=== PATIENT | female | born 1990 | race Caucasian/White ===

== ENCOUNTER 2023-12-20 11:24 | Observation (INO) | payer OTHER, SELFPAY ==
[2023-12-20] VITALS (19 sets, daily range): BP systolic 129–145; BP diastolic 85–94; PULSE 79–99; RESP 14–20; TEMP 35.6–36.5; O2SAT 98–100; BMI 22.7; BMI 23.0
--- NOTE | 2023-12-20 11:31 | ED.NURSE ---
Dr. Norwood informed of patient's presenting symptoms and request for stroke code/stat head CT. She is entering orders.
--- NOTE | 2023-12-20 11:39 | CRLHL7_ITS ---
For Patients: As a result of the Century Cures Act, medical imaging exams and procedure reports are released immediately into your electronic medical record. You may view this report before your referring provider. If you have questions, please contact your health care provider. INDICATION: Vomiting. Left-sided weakness. COMPARISON: None. TECHNIQUE: Noncontrast CT head. FINDINGS: Metallic streak artifact on the right. Otherwise, normal brain parenchymal morphology. No acute intracranial hemorrhage, acute infarct, focal edema, mass effect, or fracture. No midline shift. No abnormal ventricular dilatation. Normal calvarium and skull base. Visualized paranasal sinuses and mastoid air cells are clear. Normal orbits bilaterally. IMPRESSION: 1. No acute intracranial abnormality. Findings texted directly to Dr. Cespedes at 12 p.m.. Please note that all CT scans at this facility use dose modulation, iterative reconstruction, and/or weight-based dosing when appropriate to reduce radiation dose to as low as reasonably achievable. Dictated by Richard Gibson MD @ 12/20/2023 12:01:38 PM (Electronically Signed)
[2023-12-20] MEDS: ONDANSETRON 2 MG/ML inj 4 MG IVP ×2 (11:42→16:09)
--- NOTE | 2023-12-20 11:42 | CRLHL7_ITS ---
For Patients: As a result of the Century Cures Act, medical imaging exams and procedure reports are released immediately into your electronic medical record. You may view this report before your referring provider. If you have questions, please contact your health care provider. CLINICAL HISTORY: Left upper extremity numbness; vomiting. TECHNIQUE: Standard helical CT image acquisition through the neck was performed after intravenous contrast bolus enhancement. 3D and MIP reconstructions were performed at a separate workstation and permanently archived. COMPARISON: None available. FINDINGS: The origins of the great vessels from the aortic arch are patent. The common carotid arteries are patent. No significant luminal stenoses of the proximal ICAs by NASCET criteria. The more distal cervical segments of the ICAs are patent. The origins of the vertebral arteries are patent. There is moderate narrowing of the distal cervical left vertebral artery in its suboccipital segment in which an underlying dissection is not excluded in the appropriate clinical setting. The cervical right vertebral artery is widely patent. IMPRESSION: 1. Moderate narrowing of the distal cervical left vertebral artery and suboccipital segment. This is favored to reflect a dissection in the appropriate clinical setting. 2. Otherwise, patent cervical arterial vasculature without hemodynamically significant luminal stenosis. Please note that all CT scans at this facility use dose modulation, iterative reconstruction, and/or weight-based dosing when appropriate to reduce radiation dose to as low as reasonably achievable. Dictated by Jon Mina MD @ 12/20/2023 3:34:02 PM (Electronically Signed)
--- NOTE | 2023-12-20 11:42 | CRLHL7_ITS ---
For Patients: As a result of the Century Cures Act, medical imaging exams and procedure reports are released immediately into your electronic medical record. You may view this report before your referring provider. If you have questions, please contact your health care provider. CLINICAL HISTORY: Left upper extremity numbness; vomiting. TECHNIQUE: Standard helical CT image acquisition through the head following the administration of intravenous contrast was performed. 3D and MIP reconstructions were performed at a separate workstation and permanently archived. COMPARISON: None available. FINDINGS: No intracranial proximal large vessel occlusion or flow-limiting luminal stenosis. No evidence of cerebral aneurysm. No findings to suggest an arterial-venous shunting lesion. The major dural venous sinuses and deep venous system are patent. IMPRESSION: No intracranial proximal large vessel occlusion, flow-limiting luminal stenosis, or cerebral aneurysm. Please note that all CT scans at this facility use dose modulation, iterative reconstruction, and/or weight-based dosing when appropriate to reduce radiation dose to as low as reasonably achievable. Dictated by Jon Mina MD @ 12/20/2023 3:36:41 PM (Electronically Signed)
[2023-12-20 11:48] LABS: Lactate* 2.5 mmol/L (0.5-1.9)
[2023-12-20 11:52] LABS: Basophils Absolute Auto 0.04 K/uL (0.00-0.30); Basophils Percent Auto 0.5 % (0.0-3.0); Eosinophils Absolute Auto 0.09 K/uL (0.00-0.50); Hemoglobin* 13.5 gm/dL (12.0-16.0); Immature Granulocytes Abs Auto 0.01 K/uL (0.00-0.30); Immature Granulocytes Pct Auto 0.1 %; Lymphocytes Absolute Auto 2.44 K/uL (0.90-2.90); Lymphocytes Percent Auto 27.5 % (20-44); Mean Corpuscular HGB Conc 33 gm/dL (32-36); Mean Corpuscular Hemoglobin 30 pg (26-34); Mean Corpuscular Volume 90 fL (80-100); Monocytes Percent Auto 8.4 % (0.0-11.0); Neutrophils Absolute Auto 5.54 K/uL (1.7-7.0); Neutrophils Percent Auto 62.5 % (42.0-72.0); Platelet Count* 390 K/uL (140-440); RDW Coefficient of Variation % 12.4 % (11.5-15.5); Red Blood Count 4.56 m/uL (4.00-5.20); White Blood Count* 8.86 K/uL (4.50-11.00)
[2023-12-20 11:55] LABS: Slide Review Reflex No
[2023-12-20 12:09] LABS: Chloride* 98 mmol/L (96-114); Sodium* 132 mmol/L (135-149)
[2023-12-20 12:10] LABS: Potassium* 3.4 mmol/L (3.6-5.1)
[2023-12-20 12:12] LABS: Alanine Aminotransferase* 16 U/L (4-35); Alkaline Phosphatase* 77 U/L (40-150); Anion Gap 14 mEq/L (7-15); Aspartate Amino Transferase* 26 U/L (12-35); Bilirubin Total* 0.5 mg/dL (0.1-1.5); Blood Urea Nitrogen* 11 mg/dL (5-24); Carbon Dioxide* 20 mmol/L (20-32); Creatinine* 0.7 mg/dL (0.5-1.5); Estimated Glomerular Filt Rate 118 ml/min; Glucose* 106 mg/dL (60-115); Total Protein* 8.1 g/dL (6.0-8.3)
[2023-12-20 12:13] LABS: Calcium* 9.4 mg/dL (8.4-10.6)
[2023-12-20] MEDS: 0.9 % SODIUM CHLORIDE 1000 ml 1,000 ML IV (12:24)
--- NOTE | 2023-12-20 12:56 | ED_ITS ---
HPI - Neuro Symptoms/Deficit General Chief Complaint: Neuro Symptoms/Altered Deficit Stated Complaint: Vomiting, poss stroke Time Seen by Provider: 12/20/23 11:29 History of Present Illness HPI Narrative: Patient is a 33-year-old woman who is here visiting from [place]. She has history of anxiety and histoplasmosis. She began abruptly vomiting this morning and the vomiting has become refractory. She has a dull headache which is diffuse. She also has tingling and weakness noted in left arm left leg as well as some drooling on the left side of her face. Of his I did have her immediately entry the stroke protocol and CTA as well as CT are both negative. She has a normal neurologic exam with Neurology. She has remained significantly nauseous and vomiting here. She states she is not . No blood in her vomitus. No diarrhea no abdominal pain no fevers no chills. Related Data Home Medications ?Medication ?Instructions ?Recorded ?Confirmed control pill 1 pill PO DAILY 12/20/23 12/20/23 bupropion HCl 100 mg tablet 50 mg PO DAILY 12/20/23 12/20/23 Allergies Allergy/AdvReac Type Severity Reaction Status Date / Time No Known Drug Allergies Allergy Verified 12/20/23 12:03 Review of Systems Status of ROS: Reports: 10 or more systems reviewed and unremarkable except as noted in History and below [facility] Medical History Histoplasmosis ?B39.9 - Histoplasmosis, unspecified (ICD-10) Anxiety ?F41.9 - Anxiety disorder, unspecified (ICD-10) Exam Narrative: Exam Narrative: EXAM GENERAL: Patient appears uncomfortable on retching. EYES: No scleral icterus. LYMPH: No supraclavicular or cervical lymphadenopathy. SKIN: Visible skin seen during exam normal or with benign process only. EXT: No dependent lower extremity pedal edema. HEART: Regular rate and rhythm with no murmurs, rubs, or gallops. LUNGS: Clear to auscultation bilaterally with no crackles or wheezes. ABD: Soft, non tender, non distended. PSYCH: Good eye contact, speech is not pressured. Neurologic cranial nerves 2-12 grossly intact no focal defects. Const: Vital Signs, click to edit/add: Vital Signs - 24 hr 12/20/23 11:31 12/20/23 12:58 12/20/23 13:00 Temperature 96.0 F L Pulse Rate 85 90 Pulse Rate [Pulse Oximeter] 99 Respiratory Rate 14 Blood Pressure Blood Pressure [Ri ght Upper Arm] 145/91 H Pulse Oximetry 99 100 98 Oxygen Delivery Me thod Room Air 12/20/23 13:15 12/20/23 13:30 12/20/23 13:32 Temperature Pulse Rate 86 93 92 Pulse Rate [Pulse Oximeter] Respiratory Rate Blood Pressure 135/85 Blood Pressure [Ri ght Upper Arm] Pulse Oximetry 98 100 100 Oxygen Delivery Me thod 12/20/23 13:33 12/20/23 13:45 12/20/23 14:00 Temperature Pulse Rate 93 92 90 Pulse Rate [Pulse Oximeter] Respiratory Rate Blood Pressure Blood Pressure [Ri ght Upper Arm] Pulse Oximetry 100 100 100 Oxygen Delivery Me thod 12/20/23 14:02 12/20/23 14:15 12/20/23 14:30 Temperature Pulse Rate 89 89 88 Pulse Rate [Pulse Oximeter] Respiratory Rate Blood Pressure 139/85 Blood Pressure [Ri ght Upper Arm] Pulse Oximetry 100 100 100 Oxygen Delivery Me thod 12/20/23 14:32 Temperature Pulse Rate 84 Pulse Rate [Pulse Oximeter] Respiratory Rate Blood Pressure 129/89 Blood Pressure [Ri ght Upper Arm] Pulse Oximetry 99 Oxygen Delivery Me thod Course Course ED Course: Patient seen and examined. Stroke protocol followed. We will continue hydration. She is given IV Zofran. Your labs pending. Vital Signs Vital signs: Initial Vital Signs Temperature 96.0 F L 12/20/23 11:31 Temperature Source Temporal Artery Scan 12/20/23 11:31 Pulse Rate 99 12/20/23 11:31 Respiratory Rate 14 12/20/23 11:31 Blood Pressure 145/91 H 12/20/23 11:31 Blood Pressure Mean 109 H 12/20/23 11:31 Blood Pressure Position Semi-Fowlers 12/20/23 11:31 Pulse Oximetry 99 12/20/23 11:31 Oxygen Delivery Method Room Air 12/20/23 11:31 Vital Signs Temperature 96.0 F L 12/20/23 11:31 Pulse Rate 99 12/20/23 11:31 Respiratory Rate 14 12/20/23 11:31 Blood Pressure 145/91 H 12/20/23 11:31 Pulse Oximetry 99 12/20/23 11:31 Oxygen Delivery Method Room Air 12/20/23 11:31 Temperature 96.0 F L 12/20/23 11:31 Pulse Rate 84 12/20/23 14:32 Respiratory Rate 14 12/20/23 11:31 Blood Pressure 129/89 12/20/23 14:32 Pulse Oximetry 99 12/20/23 14:32 Oxygen Delivery Method Room Air 12/20/23 11:31 Medications Administered Medications: Generic Name Dose Route Start Last Admin Trade Name Freq PRN Reason Stop Dose Admin Dextrose/Lactated Ringer's 1,000 mls @ 999 mls/hr 12/20/23 12:56 12/20/23 14:24 5 % Dextrose In Lac Ringer's IV Infused .Q1H1M YEN Infusion Discontinued Medications Generic Name Dose Route Start Last Admin Trade Name Freq PRN Reason Stop Dose Admin Sodium Chloride 1,000 mls @ 1,000 mls/hr 12/20/23 12:17 12/20/23 13:08 0.9 % Sodium Chloride 1000 Ml IV 12/20/23 13:16 Infused .Q1H YEN Infusion Lorazepam 0.5 mg 12/20/23 14:10 12/20/23 14:25 Lorazepam 2 Mg/Ml Inj IVP 12/20/23 14:11 0.5 mg ONCE ONE Administration Ondansetron HCl 4 mg 12/20/23 11:38 12/20/23 11:42 Ondansetron 2 Mg/Ml Inj IVP 12/20/23 11:39 4 mg ONCE ONE Administration MDM - Neuro Symptoms/Deficit MDM Narrative Medical decision making narrative: Patient is a 33-year-old woman with history of anxiety histoplasmosis who presented with a very peculiar onset of abrupt nausea and vomiting. This was coupled with extreme weakness of the left arm and left leg with a pins and needle sensation. But have she right in the emergency room the neurologic symptoms are gone with refractory vomiting persisted and she developed significant dizziness. I did do a stroke code as I was very concerned and her CTA of the head and neck and CT are both normal. Neurology consultation appreciated. I did give her normal saline initially followed by D5 lactated Ringer's. Mild hyponatremia and hypokalemia noted. She is not . Labs are otherwise reassuring with a mildly elevated lactate. Patient currently is having refractory dizziness with head movement. She is unable to ambulate. At this point she is being admitted for further evaluation and treatment. Differential diagnosis includes but not limited to vertigo multiple sclerosis cerebrovascular accident cervical nerve impingement viral syndrome encephalitis meningitis. Although I have listed encephalitis and meningitis on the differential I do not believe she meets any indication for lumbar puncture. Of note she was treated with Ativan Zofran and meclizine. Lab Data Labs: Lab Results 12/20/23 12/20/23 Range/Units 11:35 11:42 WBC 8.86 (4.50-11.00) K/uL RBC 4.56 (4.00-5.20) m/uL Hgb 13.5 (12.0-16.0) gm/dL Hct 41.0 (33.0-51.0) % MCV 90 (80-100) fL MCH 30 (26-34) pg MCHC 33 (32-36) gm/dL RDW Coeff of [place] 12.4 (11.5-15.5) % Plt Count 390 (140-440) K/uL Neut % (Auto) 62.5 (42.0-72.0) % Lymph % (Auto) 27.5 (20-44) % [place] % (Auto) 8.4 (0.0-11.0) % Eos % (Auto) 1.0 (0.0-7.0) % Baso % (Auto) 0.5 (0.0-3.0) % Neut # (Auto) 5.54 (1.7-7.0) K/uL Lymph # (Auto) 2.44 (0.90-2.90) K/uL Edwards # (Auto) 0.70 (0.00-0.90) K/UL Eos # (Auto) 0.09 (0.00-0.50) K/uL Baso # (Auto) 0.04 (0.00-0.30) K/uL Abs Immat Gran (auto) 0.01 (0.00-0.30) K/uL Imm/Tot Granulo (auto) 0.1 % Sodium 132 L (135-149) mmol/L Potassium 3.4 L (3.6-5.1) mmol/L Chloride 98 (96-114) mmol/L Carbon Dioxide 20 (20-32) mmol/L Anion Gap 14 (7-15) mEq/L BUN 11 (5-24) mg/dL Creatinine 0.7 (0.5-1.5) mg/dL Estimated Creat Clear 112.20 Estimated GFR 118 ml/min Glucose 106 (60-115) mg/dL Lactate 2.5 H (0.5-1.9) mmol/L Calcium 9.4 (8.4-10.6) mg/dL Magnesium 2.1 (1.5-2.6) mg/dL Total Bilirubin 0.5 (0.1-1.5) mg/dL AST 26 (12-35) U/L ALT 16 (4-35) U/L Alkaline Phosphatase 77 (40-150) U/L Total Protein 8.1 (6.0-8.3) g/dL Albumin 5.0 (3.3-5.0) g/dL HCG, Qual Negative (Negative) Urine Color Yellow (Yellow) Urine Appearance Clear (Clear) Urine pH 7.0 (5.0-8.5) Ur Specific [place] 1.015 (1.000-1.030) Urine Protein Negative (Negative) Urine Glucose (UA) Negative (Negative) Urine Ketones 1+ A (Negative) Urine Blood Negative (Negative) Urine Nitrite Negative (Negative) Urine Bilirubin Negative (Negative) Urine Urobilinogen 0.2 (0.2-1.0) Ur Leukocyte Esterase Negative (Negative) Discharge Plan Discharge Clinical Impression: Vertigo Activity Level: Other Discharge Diet: Other Prescriptions: No Action bupropion HCl 100 mg tablet 50 mg PO DAILY control pill 1 pill PO DAILY Follow Up/Referrals: Provider,Not a Local [Primary Care Provider] -
[2023-12-20 12:58] LABS: Magnesium* 2.1 mg/dL (1.5-2.6)
[2023-12-20 12:59] LABS: Appearance Urine Clear (Clear); Bilirubin Urine Negative (Negative); Blood Urine Negative (Negative); Color Urine Yellow (Yellow); Glucose Urine Negative (Negative); Ketones Urine 1+ (Negative); Leukocyte Esterase Urine Negative (Negative); Nitrite Urine Negative (Negative); Protein Urine Negative (Negative); Specific Gravity Urine 1.015 (1.000-1.030); Urobilinogen Urine 0.2 (0.2-1.0)
[2023-12-20] MEDS: 5 % DEXTROSE IN LAC RINGER'S 1,000 ML 999 ML IV (13:15)
[2023-12-20 13:18] LABS: HCG Qualitative Serum* Negative (Negative)
[2023-12-20] MEDS: LORazepam 2 MG/ML inj 0.5 MG IVP (14:25)
[2023-12-20] MEDS: MECLIZINE HCL 25 MG TABLET PO (15:18)
[2023-12-20] MEDS: ASPIRIN 81 MG TAB.CHEW PO (15:47)
--- NOTE | 2023-12-20 18:49 | PC.NURSE ---
Patient on floor briefly before family and patient updated that patient will be transferred to [place]. Patient given ordered Aspirin and zofran prior to transfer. Set of vitals obtained. Nurse to nurse given to Paula LOPEZ. EMS here @ [id number].
== END 2023-12-20 17:46 | disposition short-term general hospital (02) ==
LOC: ED 12:28 → MEDSURG 15:27 → ED 01-06 11:14 → MEDSURG 01-19 10:42
PROVIDERS: Admitting Provider Family Medicine; Emergency Provider Internal Medicine; Visit Provider Family Medicine
DX: I77.74 Dissection of vertebral artery (principal); R42 Dizziness and giddiness; R74.02 Elevation of levels of lactic acid dehydrogenase [LDH]; E87.1 Hypo-osmolality and hyponatremia; E87.6 Hypokalemia; R51.9 Headache, unspecified; R11.0 Nausea; R11.10 Vomiting, unspecified; R53.1 Weakness; F41.9 Anxiety disorder, unspecified; Z86.19 Personal history of other infectious and parasitic diseases
CPT/HCPCS: 36415; 70450; 70496; 70498; 80053; 81003; 83605; 83735; 84703; 85025; 93005; 94761; 96361; 96365; 96375; 99283; 99285; A9270; G0378; J2060; J2405; J7030; Q9967

== ENCOUNTER 2023-12-20 17:39 | Outpatient (CLI) | payer OTHER, SELFPAY | END 2023-12-20 17:40 | disposition home or self-care (01) | LOC: AMB 12-24 19:42 | PROVIDERS: Visit Provider Internal Medicine | DX: R42 Dizziness and giddiness (principal) | CPT/HCPCS: A0425; A0427 ==

== ENCOUNTER 2024-01-23 09:45 | Outpatient (RCR) | payer OTHER, SELFPAY ==
--- NOTE | 2024-01-23 22:12 | PT.OPDN ---
[facility] Daily Note [facility] Daily Note Start: 01/01/24 17:56 Freq: Status: Active Protocol: Document 01/23/24 09:49 BMS (Rec: 01/23/24 14:01 BMS [id number]) E-signed By Christelle Grover, PT PT OP Daily Progress Note Visit Information Note Type Daily Note,Discharge Note Visit Number 5 Insurance Information Recert Due Date 03/30/24 Insurance Information/Comments [employer] Medical Diagnosis vertebral artery dissection generalized anxiety disorder. Treating Diagnosis ataxic gait R26.0 ataxia I69.393 weakness R 53.1 Referring MD Asia Meng DOPatricia [employer] (internal) Subjective Subjective leaving tomorrow to drive back to [place] with friends, dad also following in his truck. feeling so much more confident and capable Pain Comments neck, headache much less severe, dull Precautions Treatment Precautions/Contraindications vertebral artery dissection and subsequent L cerebellar stroke, lives alone in high rise apartment flat entrance and elevator in [facility]. Home Exercise Home Exercise Comments Access Code: [email or web address] URL: [email or web address] Date: 01/23/2024 Prepared by: Christelle Grover Exercises - Lunge Matrix on Slider - 1- 3 x daily - 5-7 x weekly - 1-3 sets - 10-20 reps - Single Leg Sit to Stand with Arms Crossed - 1-3 x daily - 5-7 x weekly - 1-3 sets - 10- 20 reps - Half Tandem Stance Balance with Head Rotation - 1-3 x daily - 5-7 x weekly - 1-3 sets - 10-20 reps lunge, tap to spot, saccade target Access Code: [email or web address] URL: [email or web address]/ Date: 01/07/2024 Prepared by: Christelle Grover Exercises - Stride Stance Weight Shift - 1-3 x daily - 5-7 x weekly - 1-3 sets - 10-20 reps - Staggered Stance Weight Shift with Arms Reaching - 1- 3 x daily - 5-7 x weekly - 1-3 sets - 10-20 reps - Sensory Feedback with Rice - 1-3 x daily - 5-7 x weekly - 1-3 sets - 10-20 reps Objective Other/Pertinent Objective MMT seated LE B 1 rep max 5/5 all major mm groups, UE L UE 4 -4+/5 DTR L bicep mild increase over R quad tendon B hyper with L demo increased check response Achilles L mod elevated, R ' normal' Ataxia with L UE and LE significant improvement, still noted with each limb chasity with unweighted, multitasking or challenging tasks or when fatigued. Incidence much less frequent. Ex response: Rest 135/97 92 bpm, 94% SpO2 after bike easy pace with conversation inc to 94 bpm, 136/101 and 100% SpO2. 5 min recovery to 126/88, 81bpm, 100 % SpO2. Asymptomatic with all. Improved smooth pursuit, saccade and convergence. SLS 35 sec each LE with inc sway and balance corrections without using UE or touching ground, eyes open EC each 9 sec after grounding and breath work, will need continued work Patient Instructed in Risks/Benefits Yes Therapeutic Exercise Therapeutic Exercise Minutes (minutes) 15 Therapeutic Exercise: To Restore recumbent bike LE x 5 min, UE Functional Status x4 min instruct in BP and HR goals and recommendations at this point including healthy norms for reference. reviewed yoga would be a good activity but to avoid rapid, prolonged, extreme or repetitive rotation/extension of neck (turns from torso insteady), avoid inversions at this time and avoid supporting > 50% body weight through UE in quadruped, prone . no full down dog, head above waist and work on breathing, stop if any symptoms. instructed in red flag symptoms Instructed in current BP and response to exercise, to use ~ 60-65% JOSE RAMON at this time as patient reports prior to stroke she often exerted to maximum heart rate for age ( quick formula 220-age = 188). Gait & Stair Training Gait Training/Stairs Minutes (minutes) 10 Gait & Stair Training Comments Stairs reciprocal w rail, without rail, and with carrying box with and without 10# performed with dual task Gait with dual task and surrounding awareness Neuromuscular Re-Ed Neuromuscular Reeducation Minutes ( 25 minutes) Neuromuscular Reeducation Comments neuro testing and home program instruction, printing and ' report card' prepared and instructions given for ongoing management. List of board certified neuro clinical specialists (physical therapy) was issued previously and highly recommend she make an appt with potential primary and neurologist as per previous recommendations. See scanned report card EMR scanned docs and recommendation list as well as above objective findings for neuro testing - Lunge Matrix on Slider - 1- 3 x daily - 5-7 x weekly - 1-3 sets - 10-20 reps - Single Leg Sit to Stand with Arms Crossed - 1-3 x daily - 5-7 x weekly - 1-3 sets - 10- 20 reps - Half Tandem Stance Balance with Head Rotation - 1-3 x daily - 5-7 x weekly - 1-3 sets - 10-20 reps SMALL slowish motions turning torso more than body, may progress as next PT advises Self Care Management Training Self-Care Activity Minutes (minutes) 10 Self Care Management Training recommend adequate hydration ( instructed that juicy fruits and veggies can help to inc hydration in addition to water ), get out and walk at least 10 min every [address] to [place], wear OTC compression stocking to aid in blood flow for prolonged car ride, and to allow adaptation to elevation as this may impact her cardiovascular/respiratory systems some, or she may be totally fine. Elevation past month ~ 1086', [facility] home destination 5522' Treatment Minutes Timed Code Treatment Minutes 60 Total Treatment Time 60 Billing Units Gait Training/Stairs Units 1 Neuromuscular Reeducation Units 2 Therapeutic Exercise Units 1 Assessment/Impression Assessment/Impression Simona has improved greatly over initial eval. Patient was visiting father in [place] when on 12/19 presented with severe nausea, vomiting, inability to stand. She was dx with vertebral artery dissection, spent 6 days in acute rehab facility then DC to father's home x 30 days. She is returning to [place] tomorrow - friends flying here tonight and driving home tomorrow. Father to follow in his truck. Instructed in recommendations for rest, mobility, compression and hydration as noted above. She has demonstrated ability to ascend/descend stairs safely with and without rail, with and without dual task and with and without carrying low weighted box. Balance has improved significantly as has ability to self manage. Ataxic movements and control over L UE and LE improved though advise extraneous movements still likely with overexertion , excitement, fatigue etc. Vestibular ocular improved and recommend she follow up with eye provider as recommended by her provider in [place], or if vision changes are apparent. She has still not found a primary provider at home ( [facility]) highly recommend she do this as well as a neurologist if she does not plan to return to [place] for followup. Simona has met current PT goals but has room to grow to return to prior level of function for an active 33 yo. Did issue list of board certified neurologic clinical specialist physical therapists in her home area [place] from [employer] website, she has reached out and states she will followup on this. Recommend she have assist in putting up her Erika tree (good time to supervise friends to do this task) to avoid inadvertent poor positioning, limit bending, lifting etc this year. Did instruct in recommended ex parameters as well as adaptation to elevation change especially prior to exerting. She notes father has concerns with her returning to [place], and acknowledges this is warranted to a point given past month. I assured her with her ok (signed and again obtained verbally this date) I am happy to speak to his or her concerns and they both have my contact information. Anticipate that patient will do well and wish her well for continued recovery! Plan of Care Physical Therapy Goals MET 1) Pt demo I with home program for self management and modified ADLs and IADLs including dressing, reaching without losing balance, etc. MET 2) Pt demo ability to change direction speed and multitask in gait for reintegration to community ambulation and prep for tasks like grocery shopping without LOB. MET 3) Pt demo ability to sequence and perform tasks while walking, standing and performing transfers and transitions without LOB. MET 4) Pt demo ability to perform self modifications to manage ataxia and extraneous movements, training coordination and object manipulation both UE and LE. MET 5) Pt demo tolerance of 30 -40 min continuous activity without brainfog, extraneous fatigue nor LOB for ability to stay alone without assist for periods of time. MET 6) Pt demo ability to ascend/descend 12 stairs for access to bedroom safely with single rail in manner that feels safe to both patient and father (caregiver) to access upper level of home for bedroom. Daily Plan of Care Discharge Discharge Note Discharge Summary see assessment above Date of First Visit for Therapy 01/01/24 Date of Last Visit for Therapy 01/23/24 Initial Primary Functional Limitations target saccade accuracy notes overshoot with slow return to target, chasity w R eye. convergence R eye does not track symmetrically with left and convergence point to double vision is ~ 10 with glasses. and without. unable to perform well at arm length, recommend move targets to comfortable distance initially then increase challenge as tolerated. currently recommend in sitting due to imbalance with this task in standing. smooth pursuits end range saccade minor VOR gaze stab unable to maintain focal point with cervical rotations or nods at faster speed, instructed in accuracy FLAVIO able to perform well with UE, heel william ok. dysmetria noted significant with L UE finger to nose, and with target touch both L UE and L LE. accuracy with slowed motion 5/10 without correction L UE. discoordination and accessory motions noted with LAQ and distal open chain LE. will need work on closed chain placement and proprioception with walking recommend cart push in store with increased visual chaos and activity for balance. Headache ? cervicogenic vs vascular, also top of head Left leg tired, weak. *Walk with hiking sticks * curbs, ramps uneven ground * visual perception * ataxia, hyper reflexia * spontaneous unwanted movements UE chasity hand ? Reach, coordination, strength UE and LE ? Coordination both ? Able to do FLAVIO UE fine ? Dysmetria with finger nose to finger ? Saccades with target shooting ? Delayed eye w smooth pursuits ? Gaze stab VOR unable initially to maintain focus ? Forward gaze impaired ? Rich 9 yo duran ? Reach to cupboard get glass, plate etc ? 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 lift SLS ? Forward gaze ? Currently doing smooth pursuit circles, target saccades and pencil pushups ? imbalance, abnormal gait, poor coordination ? R tricep weak ? Dysmetria and ataxia Initial Pain Level moderate head and neck Pain Level at Discharge minimal, dull, intermittent Interventions Provided During Treatment Gait Training,Neuromuscular Re -Ed,Therapeutic Activities, Therapeutic Exercise,Self Care /Home Management Recommendations/Reason for Discharge Met All Therapy Goals Discharge Instructions Moving home to [place]. See scanned report card and above note for recommendations
== END 2024-05-22 23:59 | disposition home or self-care (01) ==
PROVIDERS: Visit Provider Student in an Organized Health Care Education/Training Program
DX: I77.74 Dissection of vertebral artery (principal); F41.1 Generalized anxiety disorder; R26.0 Ataxic gait; I69.393 Ataxia following cerebral infarction; R53.1 Weakness; Z51.89 Encounter for other specified aftercare
CPT/HCPCS: 97110; 97112; 97116; 97161; 97162; 97530